=== PATIENT | female | born 1970 | race Caucasian/White ===

== ENCOUNTER 2019-06-21 09:43 | Emergency (ER) | payer OTHER ==
[~2019-06-21] VITALS: Ht 180.3 cm; Wt 99.8 kg
[2019-06-21] MEDS ORDERED: GEODON60 MG PO (10:54)
[2019-06-21] MEDS ORDERED: [UNRECOGNIZED DRUG - OTHER] PO (10:54)
[2019-06-21] MEDS ORDERED: ESCITALOPRAM OX20 MG PO (10:55)
== END 2019-06-21 14:15 | disposition home or self-care (01) ==
LOC: ER 09:43
DX: N39.8 Other specified disorders of urinary system (principal)